=== PATIENT | female | born 1950 | race Caucasian/White ===

== ENCOUNTER 2020-12-25 14:47 | Observation (INO) | payer MEDICARE, BC ==
[~2020-12-25] VITALS: Ht 154.9 cm; Wt 92.8 kg
[~2020-12-25 14:47] MED LIST: AMOX TR-K CLV1 EAC1 PO; ASPIRIN EC81 MG PO; CIPRODEX OTIC7.5 ML AD; CLONIDINE HCL0.1 MG PO; FLUOXETINE HCL20 MG PO; LOSARTAN-HCTZ1 EAC1 PO; SIMVASTATIN20 MG PO; TRIAMCINOLONE A15 GM TOP; VERAPAMIL ER240 MG PO
[2020-12-25] MEDS ORDERED: PRAVASTATIN SOD40 MG PO (15:29)
[2020-12-25] MEDS ORDERED: VERAPAMIL ER120 M1 PO (16:21)
[2020-12-25] MEDS ORDERED: OLMESARTAN-HCT1 EAC1 PO (17:45)
[2020-12-25] MEDS ORDERED: NAPROXEN500 MG PO (17:46)
[2020-12-25] MEDS ORDERED: LEVOTHYROXINE88 MCG PO (17:46)
[2020-12-25] MEDS ORDERED: GLUCOSAMINE H1500 MG PO (19:01)
[2020-12-25] MEDS ORDERED: MULTI VITAMIN1 EACH PO (19:01)
[2020-12-25] MEDS ORDERED: VITAMIN D350 MC3 PO (19:02)
--- NOTE | 2020-12-25 19:43 | NUR ---
PT ADMITTED TO ROOM 122 FROM ED, ALERT AND ORIENTATED. ABLE TO INDEPENDENTLY MOVE OFF STRETCHER TO THE BED, SL UNSTEADINESS BUT RECOVERS WELL. WOULD LIKE TO EAT, PREFERS NO ICE IN HER WATER. WILL ORDER FOOD, AND COMPLETE ADMISSION INTAKE.
--- NOTE | 2020-12-25 20:47 | NUR ---
ASSESSMENT COMPLETE, SCHEDULED MEDS GIVEN (SEE EMAR). pt REPORTS TOLERABLE 5/10 DISCOMFORT R/T LOWER BACK, pt RECENTLY SITTING IN ED BEDS. WARM PACK AND PILLOW PROVIDED FOR ADDITIONAL COMFORT. DENIES NAUSEA, BOWEL TONES ACTIVE. pt REPORTS BASELINE NUMBNESS AND TINGLING IN LEFT HAND AND ARM FOR "THE LAST 15 YEARS" R/T COLLAPSED DISC. pt A/OX4, CALL LIGHT IN REACH. pt EATING SANDWHICH BOX, DENIES FURTHER NEEDS. OREINTED TO ROOM.
--- NOTE | 2020-12-25 21:30 | NUR ---
PT CALLED TO USE THE BATHROOM. INDEPENDENTLY OUT OF BED, WITH SL DIZZINESS COMPLAINT, BACK TO BED INDEPENDENTLY. WARM BLANKET PROVIDED. ATE HER SANDWICH. CALL LIGHT WITHIN HER HER REACH. NO OTHER NEEDS AT THIS TIME.
--- NOTE | 2020-12-25 23:09 | NUR ---
CALL LIGHT ANSWERED, pt UP SBA TO BATHROOM AND BACK TO BED. TOLERATED WELL, DID REPORT SOMEWHAT DIZZY WHEN STANDING. NO FURTHER NEEDS, CALL LIGHT IN REACH. TELE#[address], SINUS AGUSTIN, HR 59.
--- NOTE | 2020-12-25 23:44 | NUR ---
ORTHO VS COMPLETE AND RECORDED. pt DENIED DIZZINESS DURING THIS TIME, JUST STATED, "I'M JUST TIRED OF STANDING, HAHA". pt BACK IN BED, NO FURHTER NEEDS, CALL LIGHT IN REACH.
--- NOTE | 2020-12-26 00:57 | NUR ---
pt RESTING IN BED WITH EYES CLOSED, RR EVEN AND UNLABORED. NO DISTRESS NOTED. CALL LIGHT IN REACH.
--- NOTE | 2020-12-26 02:30 | NUR ---
IN ROOM, pt AWAKE. ASSESSMENT AND NEURO CHECK COMPLETE. NO NEW CHANGES OR CONCERNS. pt RECENTLY RETURNED FROM BATHROOM WITH HELP FROM VESTA CHOWDHURY. PER VESTA CHOWDHURY, pt UNSTEADY AND WOBBLY ON WAY TO BATHROOM, IMPROVED ON WAY BACK TO BED. VSS, pt DENIES PAIN AND NAUSEA. NEURO CHECK COMPLETE, EQUAL STRENGTH NOTED IN BUE AND BLE, pt FULLY ORIENTED AND FOLLOWS COMMANDS. NO FURTHER NEEDS, CALL LIGHT IN REACH.
--- NOTE | 2020-12-26 04:00 | NUR ---
pt RESTING IN BED, AWAKE. DENIES NEEDS OR CONCERNS. TELE#[address], SINUS AGUSTIN. CALL LIGHT IN REACH.
--- NOTE | 2020-12-26 06:12 | NUR ---
MRI SCREENING FORM COMPLETE AND PLACED ON FRONT OF CHART. pt DENIES FURTHER NEEDS, CALL LIGHT IN REACH.
--- NOTE | 2020-12-26 06:18 | NUR ---
SCHEDULED THYROID MEDICATION GIVEN (SEE EMAR). pt LOOKING OVER BREAKFAST MENU, NO NEEDS VERBALIZED. CALL LIGHT IN REACH.
--- NOTE | 2020-12-26 09:04 | NUR ---
PATIENT UP TO BATHROOM AND THEN TO CHAIR, SBA. LINENS CHANGED. WARM WASHCLOTH GIVEN. REFUSED ORAL CARE AT THIS TIME, SUPPLIES AT SINK. PT IN ROOM AT THIS TIME. VITALS AND I&O'S CHARTED. FRESH WATER GIVEN. CALL LIGHT IN REACH. NO FURTHER NEEDS AT THIS TIME.
--- NOTE | 2020-12-26 09:07 | NUR ---
PT UP TO RECLINER WITH SBA. STATES SHE CONT. TO HAVE MILD DIZZYNESS WHEN INITIALING STANDING BUT QUICKLY GOES AWAY. ATE 100% OF BREAKFAST. DENIES ANY DISCOMFORT OR NAUSEA. IN GOOD SPIRITS, PT IN ROOM TO EVAL. SCHEDULED FOR MRI AND ECHO TODAY.ENC TO USE CALL LIGHT FOR ANY NEEDS OR ANYTIME SHE NEEDS TO GET UP.
--- NOTE | 2020-12-26 10:40 | NUR ---
HERE TO VISIT, PT GOT UP TO BATHROOM TO VOID BUT DID NOT USE CALL LIGHT, AGAIN DISCUSSED WITH PT TO PLEASE USE CALL LIGHT WHENEVER SHE WANTS TO GET UP FOR HER SAFETY. STATES SHE WILL.
[2020-12-26] MEDS ORDERED: NITROGLYCERIN0.4 MG SL (12:03)
[2020-12-26] MEDS ORDERED: CLOPIDOGREL75 MG PO (12:45)
--- NOTE | 2020-12-26 12:45 | NUR ---
Pt states she lives in a split level home, with rails. She lives with her spouse and does not use any DME. Pt denies vertigo and plan on dc today. She is awaiting US and has already had an MRI. Pt will dc to home with her spouse denies needs. Pt states she is scheduled for Covid shot today. UPdated Dr. Mei and he confirms this will not harm pt. Pt updated. He also states he will send pt to OP therapy for Vertigo. Chart faxed to . [facility] Therapy.
[2020-12-26] MEDS ORDERED: ATORVASTATIN CA80 MG PO (12:46)
[2020-12-26] MEDS ORDERED: POTASSIUM CHLO10 ME1 PO (12:51)
[2020-12-26] MEDS ORDERED: LO-DOSE ASPIRIN81 M1 PO ×2 (12:53)
--- NOTE | 2020-12-26 13:03 | NUR ---
MED REC COMPLETE
[2020-12-26] MEDS ORDERED: CHOLESTYRAMINE P4 GM PO (13:09)
--- NOTE | 2020-12-26 13:30 | NUR ---
DISCHARGE INSTRUCTIONS GIVEN TO PATIENT, VERBALIZES UNDERSTANDING OF MEDICATIONS, FOLLOW UP APPOINTMENT AND SX TO REPORT. DENIES ANY QUESTIONS. CECILY FROM PHARMACY IN ALSO TO SPEAK WITH PATIENT.
--- NOTE | 2020-12-26 13:30 | EKG ---
[facility] [address] [place], [place] [address] Signed Sinus bradycardia with 1st degree AV block Left axis deviation Abnormal ECG No previous ECGs available Confirmed by HAY RODRIGUEZ MD ([id number]) on 12/26/2020 1:30:30 PM Electronically Signed By: HAY RODRIGUEZ MD 12/26/20 1330 PATIENT NAME: SHERRY HERNANDEZ GARRY Electrocardiogram DATE OF : 48 PHYSICIAN: HAY RODRIGUEZ MD REPORT #: [id number] REPORT IS CONFIDENTIAL AND NOT TO BE RELEASED WITHOUT AUTHORIZATION
--- NOTE | 2020-12-26 13:55 | NUR ---
DC TO HOME WITH AT THIS TIME. PLEASED WITH CARE, CONT. TO DENY ANY QUESTIONS OR CONCERNS.
== END 2020-12-26 13:55 | disposition home or self-care (01) ==
LOC: ED 14:47 → MS 14:49
PROVIDERS: ADMIT Internal Medicine; ATTEND Internal Medicine
DX: R27.0 Ataxia, unspecified (principal); R00.1 Bradycardia, unspecified; I44.0 Atrioventricular block, first degree; I08.0 Rheumatic disorders of both mitral and aortic valves; I10 Essential (primary) hypertension; E78.5 Hyperlipidemia, unspecified; E03.8 Other specified hypothyroidism; F39 Unspecified mood [affective] disorder; Z88.8 Allergy status to other drugs, medicaments and biological substances; Z88.2 Allergy status to sulfonamides; Z88.6 Allergy status to analgesic agent; Z87.891 Personal history of nicotine dependence; Z20.822 Contact with and (suspected) exposure to COVID-19
CPT/HCPCS: 70450; 70496; 70498; 70551; 80053; 80061; 81001; 83036; 83735; 84484; 85025; 85610; 85730; 93005; 93010; 93306; 96372; 97162; 97165; 99285-25; C9803; G0378; J1650; Q9967; U0003

== ENCOUNTER 2021-01-09 18:01 | Emergency (ER) | payer MEDICARE, BC ==
[~2021-01-09] VITALS: Ht 154.9 cm; Wt 89.8 kg
[~2021-01-09 18:01] MED LIST changes: +ATORVASTATIN CA80 MG PO; +CHOLESTYRAMINE P4 GM PO; +CLOPIDOGREL75 MG PO; +GLUCOSAMINE H1500 MG PO; +KLOR-CON 1010 MEQ PO; +LEVOTHYROXINE88 MCG PO; +LO-DOSE ASPIRIN81 M1 PO; +MULTI VITAMIN1 EACH PO; +NAPROXEN500 MG PO; +NITROGLYCERIN0.4 MG SL; +OLMESARTAN-HCT1 EAC1 PO; +PLAVIX75 MG PO; +POTASSIUM CHLO10 ME1 PO; +PRAVASTATIN SOD40 MG PO; +VERAPAMIL ER120 M1 PO; +VITAMIN D350 MC3 PO
--- OUTSIDE RECORDS SUMMARY | 2021-01-09 18:04 | XMS ---
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 Tristan VISIT COUNT (12 MO.) 3 [facility] TOTAL 3 NOTE: Visits indicate total known visits. ED/UCC VISIT TRACKING (12 MO.) 01/09/2021 18:01 [facility] TYPE: Emergency COMPLAINT: - HIGH B/P 12/31/2020 11:45 [facility] TYPE: Emergency COMPLAINT: - LOW HEART RATE 12/25/2020 14:48 [facility] [place] TYPE: Emergency COMPLAINT: - BLOOD PRESSURE PROBLEM INPATIENT VISIT TRACKING (12 MO.) 12/31/2020 11:46 [facility] [place] TYPE: Observation COMPLAINT: - HYPOTENSION AGUSTIN DIAGNOSES: - Vitamin D deficiency, unspecified - Presence of right artificial knee joint - Pure hypercholesterolemia, unspecified - Other hypertrophic osteoarthropathy, multiple sites - Essential (primary) hypertension - Allergy status to other drugs, medicaments and biological substances - Other abnormalities of gait and mobility - halfway (current) use of antithrombotics/antiplatelets - Body mass index [BMI] 39.0-39.9, adult - Atherosclerotic heart disease of samish coronary artery without angina pectoris - Personal history of nicotine dependence - 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 - Allergy status to sulfonamides - Major depressive disorder, single episode, unspecified - Bradycardia, unspecified - Obesity, unspecified - 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 - Arthrodesis status - Other specified cardiac arrhythmias - Allergy status to narcotic agent - Hypotension, unspecified - Other specified disorders of bone density and structure, unspecified site - Hypothyroidism, unspecified 12/25/2020 14:49 [facility] TYPE: Observation COMPLAINT: - ATAXIA DIAGNOSES: - Essential (primary) hypertension - Ataxia, unspecified - Unspecified mood [affective] disorder - Rheumatic disorders of both mitral and aortic valves - Allergy status to sulfonamides - Allergy status to analgesic agent - Personal history of nicotine dependence - Hyperlipidemia, unspecified - Other specified hypothyroidism - Bradycardia, unspecified - Atrioventricular block, first degree - Allergy status to other drugs, medicaments and biological substances [id number]
--- NOTE | 2021-01-11 19:04 | EKG ---
[facility] [address] [place] [address] Signed Sinus bradycardia with 1st degree AV block with premature atrial complexes Left axis deviation Abnormal ECG When compared with ECG of 31-DEC-2020 11:52, premature atrial complexes are now present Vent. rate has increased BY [address] elevation now present in Inferior leads Confirmed by YULI TUCKER DO ([id number]) on 01/11/2021 7:03:58 PM Electronically Signed By: YULI TUCKER DO 01/11/21 1904 PATIENT NAME: MARYSHERRYBRANDI CASTAÑEDA Electrocardiogram DATE OF : 48 PHYSICIAN: YULI TUCKER DO REPORT #: [id number] REPORT IS CONFIDENTIAL AND NOT TO BE RELEASED WITHOUT AUTHORIZATION
== END 2021-01-09 20:20 | disposition home or self-care (01) ==
LOC: ED 18:01
DX: I10 Essential (primary) hypertension (principal); E78.00 Pure hypercholesterolemia, unspecified; Z88.2 Allergy status to sulfonamides; Z88.8 Allergy status to other drugs, medicaments and biological substances; Z88.5 Allergy status to narcotic agent; Z79.82 Long term (current) use of aspirin; Z79.899 Other long term (current) drug therapy
CPT/HCPCS: 80053; 83735; 84484; 85025; 93005; 93010; 99284-25

== ENCOUNTER 2022-01-01 16:34 | Emergency (ER) | payer MEDICARE, BC ==
[~2022-01-01] VITALS: Ht 154.9 cm; Wt 92.5 kg
[2022-01-01] MEDS ORDERED: COZAAR25 MG PO (22:05)
--- NOTE | 2022-01-02 07:02 | EKG ---
[facility] [address] [facility] [facility] [place] [address] Signed Sinus bradycardia with 1st degree AV block Left axis deviation Septal infarct , age undetermined Abnormal ECG When compared with ECG of 09-JAN-2021 18:19, premature atrial complexes are no longer present Septal infarct is now present Confirmed by JOSIAS CHEN MD ([id number]) on 01/02/2022 7:01:59 AM Electronically Signed By: JOSIAS CHEN MD 01/02/22 0702 PATIENT NAME: MARYSHERRY GARRY Electrocardiogram DATE OF : 48 PHYSICIAN: JOSIAS CHEN MD REPORT #: [id number] REPORT IS CONFIDENTIAL AND NOT TO BE RELEASED WITHOUT AUTHORIZATION
== END 2022-01-01 22:25 | disposition home or self-care (01) ==
LOC: ED 16:34
DX: I10 Essential (primary) hypertension (principal); E78.00 Pure hypercholesterolemia, unspecified; Z87.891 Personal history of nicotine dependence; Z88.2 Allergy status to sulfonamides; Z88.8 Allergy status to other drugs, medicaments and biological substances; Z79.899 Other long term (current) drug therapy
CPT/HCPCS: 36415; 71045; 80048; 84484; 85025; 93005; 93010; 96374; 99284-25; J7040

== ENCOUNTER 2023-03-26 17:37 | Emergency (ER) | payer MEDICARE, BC ==
[~2023-03-26] VITALS: Ht 154.9 cm; Wt 88.0 kg
[~2023-03-26 17:37] MED LIST changes: +COZAAR25 MG PO
--- OUTSIDE RECORDS SUMMARY | 2023-03-26 17:40 | XMS ---
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 Care History Medical/Surgical 01/14/2021 [facility] - PATIENT WAS LAST SEEN BY PCP - DR HAWKINS- 01/08/21. 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 E.D. VISIT COUNT (12 MO.) [address] TOTAL 3 NOTE: Visits indicate total known visits. ED/C VISIT TRACKING (12 MO.) 03/26/2023 17:37 [facility] TYPE: Emergency COMPLAINT: - RAPID HEART RATE 06/15/2022 19:15 [facility] TYPE: Emergency COMPLAINT: - LOW BLOOD PRESSURE 05/07/2022 13:15 [facility] TYPE: Emergency DIAGNOSES: - Anesthesia of skin - Low back pain, unspecified - Other intervertebral disc displacement, lumbar region - Pain in left leg - Back Pain INPATIENT VISIT TRACKING (12 MO.) 05/29/2022 10:41 [facility] TYPE: Surgery DIAGNOSES: - Spinal stenosis, lumbar region with neurogenic claudication 05/07/2022 13:15 [facility] TYPE: Internal Medicine DIAGNOSES: - Anesthesia of skin - Atherosclerotic heart disease of [place] coronary artery with other forms of angina pectoris - Dorsalgia, unspecified - Low back pain, unspecified - Other intervertebral disc displacement, lumbar region - Pain in left leg [email or web address]
--- NOTE | 2023-03-26 18:48 | EKG ---
[facility] [address] [facility] [place] [address] Signed Sinus rhythm with 1st degree AV block Left axis deviation Abnormal ECG When compared with ECG of 01-JAN-2022 20:08, Criteria for Septal infarct are no longer present Confirmed by JOSIAS CHEN MD ([id number]) on 03/26/2023 6:47:54 PM Electronically Signed By: JOSIAS CHEN MD 03/26/23 1848 PATIENT NAME: SHERRY HERNANDZE Electrocardiogram DATE OF : 48 PHYSICIAN: JOSIAS CHEN MD REPORT #: [id number] REPORT IS CONFIDENTIAL AND NOT TO BE RELEASED WITHOUT AUTHORIZATION
[2023-03-26 21:17] VITALS: BP 122/81
== END 2023-03-26 21:17 | disposition home or self-care (01) ==
LOC: ED 17:37
DX: E86.0 Dehydration (principal); R94.6 Abnormal results of thyroid function studies; I10 Essential (primary) hypertension; E78.00 Pure hypercholesterolemia, unspecified; Z79.899 Other long term (current) drug therapy; Z87.891 Personal history of nicotine dependence; Z88.2 Allergy status to sulfonamides; Z88.8 Allergy status to other drugs, medicaments and biological substances; Z88.5 Allergy status to narcotic agent
CPT/HCPCS: 36415; 80053; 83735; 84439; 84443; 84481; 84484; 85025; 93005; 93010; 99285-25